=== PATIENT | male | born 1935 | race Caucasian/White ===

== ENCOUNTER 2017-02-15 09:54 | Day surgery (SDC) | payer MEDICARE ==
[~2017-02-15] VITALS: Ht 165.1 cm; Wt 68.0 kg
[~2017-02-15 09:54] MED LIST: ASPIRIN LOW DOS81 M2 PO; CENTRUM PO; CLARITIN-D1 TA4 PO; ENALAPRIL2.5 MG PO; GLIPIZIDE5 MG PO; KRILL OIL300 MG PO; MEGA RED PO; METOPROL TAR25 MG PO; NEXIUM20 M1 PO; OMEGA-3 KRILL500 MG PO
[2017-02-15 12:59] VITALS: BP 129/66
== END 2017-02-15 13:15 | disposition home or self-care (01) ==
LOC: ENDO 09:54 → ORM 17:10
PROVIDERS: ATTEND Internal Medicine Gastroenterology
PROC: 0DB58ZX Excision of Esophagus, Via Natural or Artificial Opening Endoscopic, Diagnostic (ICD-10-PCS; principal; 2017-02-15)
DX: R13.10 Dysphagia, unspecified (principal); C15.9 Malignant neoplasm of esophagus, unspecified; K22.2 Esophageal obstruction; K29.70 Gastritis, unspecified, without bleeding; K44.9 Diaphragmatic hernia without obstruction or gangrene; K21.0 Gastro-esophageal reflux disease with esophagitis; K22.70 Barrett's esophagus without dysplasia; I25.10 Atherosclerotic heart disease of native coronary artery without angina pectoris; E11.43 Type 2 diabetes mellitus with diabetic autonomic (poly)neuropathy; K31.84 Gastroparesis; Z95.1 Presence of aortocoronary bypass graft

== ENCOUNTER 2018-08-22 09:07 | Day surgery (SDC) | payer MEDICARE ==
[~2018-08-22] VITALS: Ht 165.1 cm; Wt 68.0 kg
[2018-08-22 12:26] VITALS: BP 111/56
== END 2018-08-22 12:40 | disposition home or self-care (01) ==
LOC: ENDO 09:07 → ORM 13:00
PROVIDERS: ATTEND Internal Medicine Gastroenterology
PROC: 0DB48ZX Excision of Esophagogastric Junction, Via Natural or Artificial Opening Endoscopic, Diagnostic (ICD-10-PCS; principal; 2018-08-22)
PROC: 0DC58ZZ Extirpation of Matter from Esophagus, Via Natural or Artificial Opening Endoscopic (ICD-10-PCS; 2018-08-22)
DX: K22.70 Barrett's esophagus without dysplasia (principal); T18.128A Food in esophagus causing other injury, initial encounter; K29.70 Gastritis, unspecified, without bleeding; E11.43 Type 2 diabetes mellitus with diabetic autonomic (poly)neuropathy; K31.84 Gastroparesis; I25.10 Atherosclerotic heart disease of native coronary artery without angina pectoris; X58.XXXA Exposure to other specified factors, initial encounter; Z87.01 Personal history of pneumonia (recurrent); Z85.01 Personal history of malignant neoplasm of esophagus; Z90.49 Acquired absence of other specified parts of digestive tract

== ENCOUNTER 2018-10-17 06:32 | Day surgery (SDC) | payer MEDICARE ==
[~2018-10-17] VITALS: Ht 165.1 cm; Wt 68.0 kg
[~2018-10-17 06:32] MED LIST changes: +EQ ASPIRIN ADUL81 MG PO; +METOCLOPRAMIDE H5 MG PO; +NEXIUM 24HR20 M1 PO
[2018-10-17 09:46] VITALS: BP 107/58
== END 2018-10-17 10:00 | disposition home or self-care (01) ==
LOC: ENDO 06:32 → ORM 08:20 → ENDO 10:00 → ORM 13:50
PROVIDERS: ATTEND Internal Medicine Gastroenterology
PROC: 0DB48ZX Excision of Esophagogastric Junction, Via Natural or Artificial Opening Endoscopic, Diagnostic (ICD-10-PCS; principal; 2018-10-17)
DX: K22.2 Esophageal obstruction (principal); K22.70 Barrett's esophagus without dysplasia; K29.70 Gastritis, unspecified, without bleeding; E11.43 Type 2 diabetes mellitus with diabetic autonomic (poly)neuropathy; K31.84 Gastroparesis; K44.9 Diaphragmatic hernia without obstruction or gangrene; I25.10 Atherosclerotic heart disease of native coronary artery without angina pectoris; Z95.1 Presence of aortocoronary bypass graft; Z90.49 Acquired absence of other specified parts of digestive tract; Z85.01 Personal history of malignant neoplasm of esophagus